=== PATIENT | male | born 1995 | race Caucasian/White ===

== ENCOUNTER 2021-01-09 14:27 | Emergency (ER) | payer MEDICAID ==
[~2021-01-09] VITALS: Ht 167.6 cm; Wt 80.0 kg
[2021-01-09 17:45] LABS: BASOPHILS % 0.5 % (0.0-2.0); EOSINOPHILS % 2.1 % (0.0-5.0); HEMATOCRIT. 45.8 % (42.0-52.0); HEMOGLOBIN. 15.5 g/dL (14.0-18.0); LYMPHOCYTES % 32.5 % (20.0-50.0); MEAN CORPUSCULAR HEMOGLOBIN 29.1 pg (28.0-32.0); MEAN CORPUSCULAR VOLUME 85.8 fL (80.0-94.0); MEAN PLATELET VOLUME 8.4 fl (7.4-10.4); NEUTROPHILS % 57.9 % (40.0-76.0); PLATELET 259 x1000/uL (130-400); RED BLOOD CELL COUNT 5.34 mill/uL (4.7-6.1); RED CELL DISTRIBUTION WIDTH 13.1 % (11.6-14.6)
[2021-01-09 17:51] LABS: CHLORIDE 105 mEq/L (98-107)
[2021-01-09] MEDS ORDERED: MECLIZINE 25MG TABLET PO ONE (19:15)
[2021-01-09] MEDS ORDERED: IBUPROFEN 400MG TABLET PO ONE (19:15)
[2021-01-09 20:55] VITALS: BP 130/78
== END 2021-01-09 20:57 | disposition home or self-care (01) ==
LOC: ER 14:27
DX: H93.11 Tinnitus, right ear (principal); R55 Syncope and collapse; H91.90 Unspecified hearing loss, unspecified ear; I10 Essential (primary) hypertension; I25.10 Atherosclerotic heart disease of native coronary artery without angina pectoris
CPT/HCPCS: 36415; 71045; 80053; 83880; 84484; 85025; 93005; 99285; J8597